=== PATIENT | female | born 1955 | race Two or more races ===

== ENCOUNTER 2020-07-01 11:09 | Inpatient (IN) | payer OTHER ==
[~2020-07-01] VITALS: Ht 160 cm; Wt 76.2 kg
[~2020-07-01 11:09] MED LIST: ASA81 MG PO; GLUCOPHAGE XR500 MG PO
[2020-07-01] MEDS ORDERED: BAYER THERAPY325 MG PO (11:18)
[2020-07-01] MEDS ORDERED: LANTHANUM CAR1000 MG PO (11:19)
[2020-07-01] MEDS ORDERED: COZAAR100 MG PO (11:20)
[2020-07-01] MEDS ORDERED: GLIPIZIDE XL10 MG PO (11:20)
[2020-07-01] MEDS ORDERED: COREG CR40 MG (11:20)
[2020-07-01] MEDS ORDERED: SYNTHROID50 MCG PO (11:21)
[2020-07-01] MEDS ORDERED: TRULICITY0.75 MG/0. SQ (11:22)
--- NOTE | 2020-07-01 11:22 | NUR ---
PTE REFIERE QUE NO SENTIA EL BRASO VINNY DESDE ESTA MANANA Y CON NAUSEAS.SE LE REALIZA EKG.
--- NOTE | 2020-07-01 13:55 | NUR ---
SE REALIZA CANALIZACION Y ZENON DE MUESTRAS BAJO MEDIDAS AEPTICAS Y DE SEGUIRDAD. PACIENTE PENDIENTE A CT SACN DE SANDY.
[2020-07-04] MEDS ORDERED: CLOPIDOGREL BIS75 MG PO (13:16)
[2020-07-04] MEDS ORDERED: ADULT ASPIRIN81 MG PO (13:16)
== END 2020-07-04 14:00 | disposition home or self-care (01) | DRG 66 ==
LOC: ER 11:09 → SEC-K 21:09 → SURH 23:15 → SEC-K 07-02 01:04 → MEDI 07-02 01:06
PROVIDERS: ADMIT Internal Medicine; ATTEND Internal Medicine
PROC: BW28ZZZ Computerized Tomography (CT Scan) of Head (ICD-10-PCS; principal; 2020-07-01)
PROC: BW38ZZZ Magnetic Resonance Imaging (MRI) of Head (ICD-10-PCS; 2020-07-01)
PROC: 4A12X4Z Monitoring of Cardiac Electrical Activity, External Approach (ICD-10-PCS; 2020-07-01)
DX: I63.89 Other cerebral infarction (principal); G83.24 Monoplegia of upper limb affecting left nondominant side; Z20.822 Contact with and (suspected) exposure to COVID-19
CPT/HCPCS: 70544